=== PATIENT | male | born 1930 | race Caucasian/White ===

== ENCOUNTER 2017-05-31 18:10 | Emergency (ER) | payer OTHER ==
[~2017-05-31] VITALS: Ht 172.7 cm; Wt 88.0 kg
[2017-05-31 18:32] VITALS: Ht 172.7 cm; Wt 88.0 kg
[2017-05-31 20:17] VITALS: BP 132/79
== END 2017-05-31 20:17 | disposition home or self-care (01) ==
LOC: ED 18:10
DX: Z48.01 Encounter for change or removal of surgical wound dressing (principal); L72.8 Other follicular cysts of the skin and subcutaneous tissue; I10 Essential (primary) hypertension; E78.00 Pure hypercholesterolemia, unspecified